=== PATIENT | female | born 1940 | race Two or more races ===

== ENCOUNTER 2020-08-12 17:03 | Emergency (ER) | payer SELFPAY ==
[2020-08-12 17:06] VITALS: BP 117/68; PULSE 78; RESP 16; TEMP 36.4; O2SAT 98; BMI 26.4
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
[2020-08-12] MEDS: Ibuprofen 600 MG Tablet PO (19:45)
== END 2020-08-12 19:46 | disposition home or self-care (01) ==
PROVIDERS: Emergency Provider Emergency Medicine
DX: S09.90XA Unspecified injury of head, initial encounter (principal); S16.1XXA Strain of muscle, fascia and tendon at neck level, initial encounter; S39.012A Strain of muscle, fascia and tendon of lower back, initial encounter; V43.62XA Car passenger injured in collision with other type car in traffic accident, initial encounter; Y92.410 Unspecified street and highway as the place of occurrence of the external cause; E11.9 Type 2 diabetes mellitus without complications; Z86.73 Personal history of transient ischemic attack (TIA), and cerebral infarction without residual deficits
CPT/HCPCS: 70450; 71046; 72100; 72125; 74176; 99284; A4216